=== PATIENT | male | born 1960 | race Caucasian/White ===

== ENCOUNTER 2017-03-09 14:06 | Inpatient (IN) | payer OTHER ==
[~2017-03-09 14:06] MED LIST: Iopamidol 370 76% 100 ML VIAL ONE
[2017-03-09 14:47] LABS: Clarity SL HAZY (Clear); Leukocyte Negative (Negative); Nitrite Negative (Negative)
[2017-03-09 14:48] LABS: Bilirubin Negative (Negative); Blood, Urine Negative (Negative); Glucose, Urine (Dipstick) 250 mg/dL (Negative); Protein, Urine (Dipstick) 30 mg/dL (Neg-Trace)
[2017-03-09 14:51] LABS: #Lymphocytes 2.4 thou/uL (1.20-3.40); #Neutrophils 7.1 thou/uL (1.40-6.50); %Basophils 1.3 % (0.0-1.0); %Eosinophils 3.3 % (0.0-10.0); %Lymphocytes 22.6 % (21.0-51.0); %Monocytes 6.2 % (0.0-10.0); %Neutrophils 66.6 % (42.0-75.0); Hemoglobin 14.9 g/dL (14.0-18.0); Mean Corpuscular HGB CONC 30.6 g/dL (32.0-36.0); Mean Corpuscular Hemoglobin 25.2 pg (27.0-31.0); Mean Corpuscular Volume 82.5 fL (80.0-94.0); Platelet Count 204 thou/uL (130-400); RBC Distribution Width 14.1 % (11.5-14.5); White Blood Cell (WBC) Count 10.6 thou/uL (4.8-10.8)
[2017-03-09] MEDS ORDERED: Sodium Chloride 0.9% 1,000 ML ONE (14:51)
[2017-03-09 14:52] LABS: #Basophils 0.1 thou/uL (0.0-0.2); #Eosinphils 0.4 thou/uL (0.0-0.7); #Monocytes 0.7 thou/uL (0.11-0.59)
[2017-03-09 14:54] LABS: RBC/HPF 0-3 HPF (0-3); Squamous Epithelial 0-3 HPF (0-3); WBC/HPF 0-3 HPF (0-3)
[2017-03-09 14:59] LABS: Carbon Dioxide 27 mmol/L (22-29); Chloride 99 mmol/L (98-107); Potassium 3.9 mmol/L (3.5-5.1); Sodium 138 mmol/L (136-145)
[2017-03-09 15:00] LABS: Anion Gap 16 mmol/L (10-20); BUN (Urea Nitrogen) 11 mg/dL (8.4-25.7); Bilirubin, Total 0.9 mg/dL (0.2-1.2); Calcium 9.9 mg/dL (7.8-10.44); Estimated GFR-MDRD 55; Globulin 4.5 g/dL (2.4-3.5); Glucose 173 mg/dL (70-105); Protein, Total 8.5 g/dL (6.0-8.3)
[2017-03-09 15:01] LABS: ALT (SGPT) 29 U/L (8-55); AST (SGOT) 23 U/L (5-34); Alkaline Phosphatase 80 U/L (40-150); Lipase 17 U/L (8-78)
[2017-03-09] MEDS ORDERED: Fentanyl 100 MCG/2 ML VIAL ONE (15:46)
[2017-03-09] MEDS ORDERED: Fentanyl 100 MCG/2 ML VIAL SLOW IVP PRN ×2 (16:10→18:49)
[2017-03-09] MEDS ORDERED: Dextrose 50% Abboject 50 ML SYRINGE IVP PRN (16:11)
[2017-03-09] MEDS ORDERED: Dextrose 5% in Water 1,000 ML IV PRN ×2 (16:11→21:34)
[2017-03-09] MEDS ORDERED: Insulin Regular 300 UNITS/3 ML VIAL SC PRN (16:11)
--- NOTE | 2017-03-09 16:14 | CT ---
CT ABDOMEN AND PELVIS WITH CONTRAST: HISTORY: History of diverticulitis. Abdominal pain. COMPARISON: CT abdomen and pelvis 10/02/15. TECHNIQUE: CT abdomen and pelvis performed after intravenous administration of contrast. FINDINGS: There is moderate circumferential wall thickening of the sigmoid colon. Along the anterior mesenter ic side of the sigmoid colon is an area of diverticulitis. No abscess is yet seen. This is in a similar location to the 2015 bout of diverticulitis. There is extensive diverticular disease throughout the sigmoid colon. The remainder of the colon is unremarkable. Lung bases are clear. No pericardial effusion. Diffuse hepatic steatosis. Prior cholecystectomy. The spleen is unremarkable as well as the pancre as. Aortoiliac system is without aneurysmal dilatation. No adenopathy. The kidneys demonstrate punctate calculi within both collecting systems. There is a large bone island in the right iliac wing. IMPRESSION: 1. Uncomplicated acute sigmoid diverticulitis. Followup colonoscopy may be helpful. 2. Small renal calculi bilaterally without evidence of recently passed stone. POS: OFF
[2017-03-09] MEDS ORDERED: Sodium Chloride 0.9% 1,000 ML IV SCH (16:15)
[2017-03-09 16:30] VITALS: BMI 32.8
[2017-03-09] MEDS ORDERED: Piperacillin/Tazobactam 3.375 GM in Sodium Chloride 0.9% 100 ML IVPB SCH (17:00)
[2017-03-09] MEDS ORDERED: Ipratropium Bromide 2.5 ml Neb NEB SCH (18:00)
[2017-03-09] MEDS ORDERED: Nitroglycerin 0.4 MG TAB (25 Tab Bottle) SL PRN (21:32)
[2017-03-09] MEDS ORDERED: PROVENTIL INHALER 6.7 G (200 INHALATIONS) INH PRN (21:32)
[2017-03-09] MEDS ORDERED: Dextrose 50% Abboject 50 ML SYRINGE SLOW IVP PRN (21:34)
[2017-03-10] MEDS: Piperacillin/Tazobactam 3.375 GM in Sodium Chloride 0.9% 100 ML IVPB SCH ×4 (01:09→17:01)
[2017-03-10] MEDS: HYDROcodone/Acetaminophen 10/325 mg Tablet PO SCH ×6 (01:10→20:41)
[2017-03-10] MEDS: Ipratropium Bromide 2.5 ml Neb NEB SCH ×4 (01:11→18:43)
[2017-03-10] MEDS: Sodium Chloride 0.9% 1,000 ML IV SCH ×3 (01:11→18:45)
[2017-03-10 05:16] LABS: #Basophils 0.1 thou/uL (0.0-0.2); #Eosinphils 0.3 thou/uL (0.0-0.7); #Lymphocytes 2.3 thou/uL (1.20-3.40); #Monocytes 0.5 thou/uL (0.11-0.59); #Neutrophils 5.3 thou/uL (1.40-6.50); %Basophils 1.1 % (0.0-1.0); %Eosinophils 3.5 % (0.0-10.0); %Lymphocytes 26.7 % (21.0-51.0); %Monocytes 6.2 % (0.0-10.0); %Neutrophils 62.5 % (42.0-75.0); Mean Corpuscular Hemoglobin 25.6 pg (27.0-31.0); Mean Corpuscular Volume 82.7 fl (80.0-94.0); Mean Platelet Volume 9.8 fL (7.4-10.4); Platelet Count 144 thou/uL (130-400); RBC Distribution Width 14.2 % (11.5-14.5); Red Blood Cell (RBC) Count 5.08 mill/uL (4.70-6.10); White Blood Cell (WBC) Count 8.5 thou/uL (4.8-10.8)
[2017-03-10 05:32] LABS: Anion Gap 15 mmol/L (10-20); BUN (Urea Nitrogen) 9 mg/dL (8.4-25.7); Calc. Creatinine Clearance 94 mL/min (70-130); Carbon Dioxide 26 mmol/L (22-29); Chloride 104 mmol/L (98-107); Estimated GFR-MDRD 65; Glucose 141 mg/dL (70-105); Potassium 4.3 mmol/L (3.5-5.1); Sodium 141 mmol/L (136-145)
[2017-03-10] MEDS: Mometasone/Formoterol 60 PUFF AER INH SCH ×2 (05:59→17:50)
[2017-03-10] MEDS: glipiZIDE 5 MG TAB PO SCH (07:44)
[2017-03-10] MEDS: Famotidine 20 MG TAB PO SCH ×2 (08:38→20:41)
[2017-03-10] MEDS: Gabapentin 300 MG CAP PO SCH ×3 (08:38→20:41)
[2017-03-10] MEDS: Docusate 100 MG CAP PO SCH ×2 (08:39→20:41)
[2017-03-10] MEDS: Loratadine 10 MG TAB PO SCH (08:39)
[2017-03-10] MEDS ORDERED: Sodium Chloride 0.9% 10 ML ONE (12:53)
[2017-03-10] MEDS: HumaLOG 300 UNITS/3 ML VIAL SC PRN (17:10)
[2017-03-10] MEDS: Atorvastatin Calcium 40 MG TAB PO SCH (20:40)
[2017-03-10] MEDS: Mirtazapine 30 MG TAB PO SCH (20:42)
--- NOTE | 2017-03-10 21:32 | PRG ---
DATE OF SERVICE: 03/10/2017 SUBJECTIVE: The patient feels much better with no abdominal pain, nausea or vomiting. Good appetit e. OBJECTIVE: VITAL SIGNS: Vital signs showing to have blood pressure 117/70, pulse 67, afebrile, O2 sats 97%. LUNGS: Clear. CARDIAC: Examination showed regular rhythm. ABDOMEN: Soft and nontender. LABORATORY DATA: White count 8500, hematocrit 42, hemoglobin 13. Accu-Cheks range from 144 to 201, on sliding scale. ASSESSMENT: Resolving diverticulitis. PLAN: Advance diet to diabetic diet. Discontinue IV Zosyn. Start Levaquin 500 p.o. daily Possible discharge tomorrow.
--- NOTE | 2017-03-10 23:07 | HP ---
DATE OF ADMISSION: 03/09/2017 CHIEF COMPLAINT: Abdominal pain, diverticulitis. HISTORY OF PRESENT ILLNESS: Patient is a 56-year-old white male with a history of coronary artery d isease, COPD, and hypertension, who presents with 6-day history of the abdominal pain with increased pain upon walking. No fever, chills, no nausea and vomiting, but significant constipation. He was sent to the emergency room where CT scan which showed acute diverticulitis. White count was normal , but he was significantly tender on his abdominal examination. It is felt therefore that he requir ed admission to hospital for IV antibiotics and monitoring of his elbow pain, because of his other c omorbidities of coronary artery disease, COPD. PAST MEDICAL HISTORY: Remarkable for coronary artery disease with recent admission to the hospital for chest pain with evaluation showing diffuse coronary artery disease with a 60% lesion in his LAD. He has done well on medical treatment, as he has become more compliant. He also has had good cont rol for the COPD. He has been compliant to his medications and is not admitted to the hospital this October. Hypertension is also well controlled, as with his diabetes, but he is a not insulin-depen dent. He is compliant to his medications. MEDICATIONS: Amlodipine 5 mg daily, aspirin 81 daily, atorvastatin 40 nightly, budesonide-formotero l inhaler 2 puffs twice daily, citalopram 40 mg nightly, gabapentin 600 three times daily, hydrocodo ne 10/300 every 4 hours as needed, Isordil 30 daily, isosorbide mononitrate 30 mg daily, Remeron 30 mg nightly, omeprazole 40 mg daily, Spiriva 18 mcg daily, Ventolin 2 puffs q.4, glipizide 5 mg daily , metformin 500 twice daily. ALLERGIES: He is allergic to SULFA. SOCIAL HISTORY: Non smoking, non drinking, lives with his , works at [employer]. FAMILY MEDICAL HISTORY: Positive for mother with coronary artery disease and diabetes. REVIEW OF SYSTEMS: HEENT: Denies headaches, dizziness, change in vision, hearing, hoarseness, or d ysphagia. Pulmonary: Denies cough, sputum production, pneumonia, asthma, tuberculosis. He had [facility] tiple admissions to the hospital for COPD exacerbation. Cardiovascular: He has history of current chest pain and nonsurgical coronary artery disease controlled medically with no recent change in ang gracy. No orthopnea, paroxysmal nocturnal dyspnea, or edema. Gastrointestinal: Denies nausea, vomit ing. Does have the above-mentioned abdominal pain, constipation. Genitourinary: Denies dysuria, h ematuria, nocturia. Musculoskeletal: Denies stiffness, swelling in joints or extremities. PHYSICAL EXAMINATION: GENERAL: Patient is a middle-aged white male who appears in mild distress from abdominal pain, orie nted x3 and cooperative. VITAL SIGNS: Blood pressure 149/82, O2 sat is 93%, respirations 18, pulse 80, afebrile. HEENT: Pupils are equal, round, and react to light and accommodation. Sclerae anicteric. Conjunct ivae pale. Oral mucous membranes. Well hydrated. NECK: Supple. There are no nodes or masses. JVP is not elevated. LUNGS: Clear. CARDIAC: Regular rhythm. No gallops or murmurs with S4. ABDOMEN: Soft, but diffusely tender with no rebound. There are decreased bowel sounds. SKIN/EXTREMITIES: Showed no edema, clubbing, cyanosis. NEUROLOGIC: Shows no focal findings. LABORATORY DATA: CT scan revealing acute sigmoid diverticulitis, small renal calculi bilaterally. Laboratory shows white count of 10,600, hematocrit 48, hemoglobin 14. Sodium is 138, potassium 3.9, chloride 99, bicarbonate 27, BUN 11, creatinine 1.34, glucose 173, calcium 9.9. AST 23, ALT 29, al bumin 4.0, globulin 4.5. Urinalysis shows trace ketones, 250 glucose, 30 mg protein. ASSESSMENT: Acute sigmoid diverticulitis in the patient with multiple comorbidities of hypertension , diabetes, or coronary artery disease. We will admit to the hospital on IV Zosyn with clear liquid s. Continue home medications, monitor overnight, and slowly advance diet.
[2017-03-11] MEDS: HYDROcodone/Acetaminophen 10/325 mg Tablet PO SCH ×6 (04:01→20:10)
[2017-03-11] MEDS: Ipratropium Bromide 2.5 ml Neb NEB SCH ×4 (04:02→20:13)
[2017-03-11] MEDS: Mometasone/Formoterol 60 PUFF AER INH SCH ×2 (06:05→18:40)
[2017-03-11] MEDS ORDERED: Magnesium Citrate 300 ML BOT PO SCH (07:15)
--- NOTE | 2017-03-11 08:30 | PRG ---
DATE OF SERVICE: 03/11/2017 SUBJECTIVE: The patient feels well with no further abdominal pain, good appetite. No nausea or vom iting. He still has not had a bowel movement for over a week. OBJECTIVE: Blood pressure 105/58, temperature 98, pulse 65, respirations 18, O2 sats 96% on room ai r. White count was normal yesterday at 8500. Abdomen is soft and nontender. Lungs are clear. ASSESSMENT: 1. Resolving sigmoid diverticulitis. 2. Stable hypertension. 3. Stable diabetes with Accu-Cheks running from 108-185. 4. Stable coronary disease with no angina. 5. Persistent constipation, severe over 1 week. PLAN: Bottle of mag citrate 300 mL now. If he has normal bowel movement will discharge home today on oral Levaquin.
[2017-03-11] MEDS: Gabapentin 300 MG CAP PO SCH ×3 (08:47→20:11)
[2017-03-11] MEDS: Loratadine 10 MG TAB PO SCH (08:47)
[2017-03-11] MEDS: glipiZIDE 5 MG TAB PO SCH (08:47)
[2017-03-11] MEDS: Docusate 100 MG CAP PO SCH ×2 (08:48→20:12)
[2017-03-11] MEDS: Famotidine 20 MG TAB PO SCH ×2 (08:48→20:11)
[2017-03-11] MEDS: HumaLOG 300 UNITS/3 ML VIAL SC PRN (16:53)
[2017-03-11] MEDS ORDERED: GoLYTELY 4,000 ml Bottle PO SCH (18:45)
[2017-03-11] MEDS: Mirtazapine 30 MG TAB PO SCH (20:11)
[2017-03-11] MEDS: Atorvastatin Calcium 40 MG TAB PO SCH (20:12)
[2017-03-12] MEDS: HYDROcodone/Acetaminophen 10/325 mg Tablet PO SCH ×2 (01:05→05:43)
[2017-03-12] MEDS: Ipratropium Bromide 2.5 ml Neb NEB SCH ×2 (01:09→06:21)
[2017-03-12] MEDS ORDERED: HYDROcodone/Acetaminophen 10/325 mg Tablet PO PRN (05:39)
[2017-03-12] MEDS: Mometasone/Formoterol 60 PUFF AER INH SCH (06:21)
[2017-03-12] MEDS: HumaLOG 300 UNITS/3 ML VIAL SC PRN (06:24)
[2017-03-12] MEDS: glipiZIDE 5 MG TAB PO SCH (07:40)
[2017-03-12 07:43] VITALS: BP 122/67; TEMP 97.6
[2017-03-12] MEDS: Famotidine 20 MG TAB PO SCH (08:39)
[2017-03-12] MEDS: Loratadine 10 MG TAB PO SCH (08:39)
[2017-03-12] MEDS: Docusate 100 MG CAP PO SCH (08:40)
[2017-03-12] MEDS: Gabapentin 300 MG CAP PO SCH (08:40)
--- NOTE | 2017-03-12 10:46 | RAD ---
ABDOMEN 1 VIEW: Date: 03/12/17 HISTORY: 56-year-old male with constipation and history of diverticulitis. COMPARISON: 03/09/17 CT. FINDINGS: There is some gas and minimal thecal material in the colon, but no significant solid fecal material within a dilated rectum that would suggest significant constipation. No free intraperitoneal air is seen on this supine study. There is some minimal gas and some borderline size small bowel loops in t he right side of the abdomen, possibly mild ileus secondary to documented acute diverticulitis on th e prior CT of 03/09/17. IMPRESSION: Unremarkable KUB. No bowel obstruction. No evidence for free intraperitoneal air. POS: CET
--- NOTE | 2017-03-12 13:54 | DIS ---
DATE OF ADMISSION: 03/09/2017 DATE OF DISCHARGE: 03/10/2017 FINAL DIAGNOSES: 1. Acute sigmoid diverticulitis. 2. Coronary disease with no evidence of angina. 3. Type 2 diabetes with fair control. 4. Chronic obstructive pulmonary disease, well compensated. 5. Depression, anxiety. HOSPITAL COURSE: The patient is a 56-year-old white male with a history of coronary artery disease, COPD, diabetes, but no previous history of diverticulitis, presented with severe left lower quadran t pain for several days. He was seen in my office and in the emergency room and found to have a nor mal white count with significant tenderness in the abdomen. Subsequent CT did show significant sigm oid diverticulitis. Because of his pain and his significant underlying comorbidities he was admitte d to the hospital and started on IV Zosyn and did well with decreasing pain, but still required pain medications of hydrocodone to control his pain. His abdominal exam; however normalized with no ten derness to palpation. His diet was initially a clear liquid, but then was advanced to diabetic diet . He did well on this with no problems, but did have persistent constipation as he states he has no t had a bowel movement for 1 week. He was therefore given mag citrate and then GoLYTELY prep with f air bowel movement. Repeat abdominal x-ray did show no evidence of obstruction or fecal impaction a nd improving stool in the colon and therefore, he was felt to be stable to be discharged home. He h ad been switched to oral Levaquin after the first day in the hospital and was continued on this on d ischarge of Levaquin 500 mg daily, plus his home medications of amlodipine 5 daily, aspirin 81 daily , atorvastatin 40 nightly, budesonide formoterol 2 puffs twice daily, citalopram 40 mg daily, docusa te 100 mg twice daily was added, famotidine 20 mg twice daily was added, gabapentin 600 three times daily was continued, isosorbide mononitrate 30 mg daily was continued, Levaquin 500 mg daily for 1 w [place] was added, Remeron 30 mg daily was continued, nitroglycerin as needed, Spiriva 18 mcg puff twic e daily was continued, glipizide 5 mg daily was continued, metformin 500 twice daily was continued. His laboratories on discharge showed his Accu-Cheks to range from 108 to 236. His white count was 8 500, hematocrit 42, hemoglobin 13, sodium 141, potassium 4.3, chloride 104, bicarb 26, BUN 9, creati nine 1.16, glucose 141. He will follow up with his primary care physician on discharge.
== END 2017-03-12 09:58 | disposition home or self-care (01) | DRG 392 ==
LOC: NAV ERS 14:06 → NAV ACUTE 14:11 → NAV ERS 16:00 → UNDOADMIN 16:13 → NAV ACUTE 16:13
PROVIDERS: ADMIT Internal Medicine; ATTEND Internal Medicine
DX: K57.32 Diverticulitis of large intestine without perforation or abscess without bleeding (principal); I10 Essential (primary) hypertension; I25.10 Atherosclerotic heart disease of native coronary artery without angina pectoris; K59.09 Other constipation; J44.9 Chronic obstructive pulmonary disease, unspecified; Z79.84 Long term (current) use of oral hypoglycemic drugs; E11.9 Type 2 diabetes mellitus without complications; F32.9 Major depressive disorder, single episode, unspecified; F41.9 Anxiety disorder, unspecified; Z95.0 Presence of cardiac pacemaker; K21.9 Gastro-esophageal reflux disease without esophagitis; E78.00 Pure hypercholesterolemia, unspecified; E86.0 Dehydration
CPT/HCPCS: 36415; 36416; 74000; 74177; 80048; 80053; 81003; 81015; 83690; 85025; 94640; 94664; 96361; 96374; A4216; J2543; J3010; J7050; J7644

== ENCOUNTER 2017-05-11 17:28 | Inpatient (IN) | payer OTHER ==
[2017-05-11 18:13] VITALS: BMI 32.8
[2017-05-11] MEDS ORDERED: Ondansetron HCl/PF 4 MG/2 ML Vial IVP PRN (18:50)
[2017-05-11] MEDS ORDERED: PROVENTIL INHALER 6.7 G (200 INHALATIONS) INH PRN (18:53)
[2017-05-11] MEDS ORDERED: Nitroglycerin 0.4 MG TAB (25 Tab Bottle) SL PRN (19:00)
[2017-05-11 20:46] LABS: ALT (SGPT) 34 U/L (8-55); AST (SGOT) 44 U/L (5-34); Albumin 4.6 g/dL (3.5-5.0); Alkaline Phosphatase 94 U/L (40-150); Anion Gap 17 mmol/L (10-20); BUN (Urea Nitrogen) 10 mg/dL (8.4-25.7); Bilirubin, Total 0.8 mg/dL (0.2-1.2); Calc. Creatinine Clearance 98 mL/min (70-130); Calcium 9.8 mg/dL (7.8-10.44); Carbon Dioxide 25 mmol/L (22-29); Chloride 99 mmol/L (98-107); Estimated GFR-MDRD 68; Globulin 3.7 g/dL (2.4-3.5); Glucose 160 mg/dL (70-105); Potassium 3.5 mmol/L (3.5-5.1); Protein, Total 8.3 g/dL (6.0-8.3); Sodium 137 mmol/L (136-145)
[2017-05-11] MEDS ORDERED: TIOTROPIUM INH SCH (21:00)
[2017-05-11] MEDS: Sodium Chloride 0.9% 1,000 ML IV SCH (21:14)
[2017-05-11] MEDS: Pantoprazole 40 MG VIAL IVP SCH (21:14)
[2017-05-12] MEDS: Ipratropium Bromide 2.5 ml Neb NEB SCH ×4 (02:25→19:07)
[2017-05-12] MEDS: Sodium Chloride 0.9% 1,000 ML IV SCH ×5 (04:09→23:00)
[2017-05-12] MEDS: Mometasone/Formoterol 60 PUFF AER INH SCH ×2 (06:00→17:42)
[2017-05-12] MEDS ORDERED: Non-Formulary Item 1 EACH (Budesonide-Formoterol [Symbicort 160-4.5] 2 PUFF) INH SCH (06:30)
[2017-05-12 07:19] LABS: Bilirubin Negative (Negative); Blood, Urine Negative (Negative); Clarity Clear (Clear); Glucose, Urine (Dipstick) Negative (Negative); Leukocyte Negative (Negative); Nitrite Negative (Negative); Protein, Urine (Dipstick) Negative (Neg-Trace); Urobilinogen 0.2 mg/dL (0.2-1.0)
[2017-05-12 07:25] LABS: Bacteria/HPF None Seen HPF (None Seen); RBC/HPF None Seen HPF (0-3); Squamous Epithelial 0-3 HPF (0-3); WBC/HPF None Seen HPF (0-3)
[2017-05-12 07:27] LABS: #Basophils 0.1 thou/uL (0.0-0.2); #Eosinphils 0.7 thou/uL (0.0-0.7); #Lymphocytes 2.4 thou/uL (1.20-3.40); #Monocytes 0.6 thou/uL (0.11-0.59); #Neutrophils 4.6 thou/uL (1.40-6.50); %Basophils 1.6 % (0.0-1.0); %Eosinophils 8.7 % (0.0-10.0); %Lymphocytes 28.2 % (21.0-51.0); %Monocytes 6.6 % (0.0-10.0); %Neutrophils 54.8 % (42.0-75.0); Hemoglobin 14.7 g/dL (14.0-18.0); Mean Corpuscular HGB CONC 30.8 g/dL (32.0-36.0); Mean Corpuscular Hemoglobin 25.2 pg (27.0-31.0); Mean Corpuscular Volume 81.8 fl (80.0-94.0); Platelet Count 220 thou/uL (130-400); RBC Distribution Width 13.4 % (11.5-14.5); Red Blood Cell (RBC) Count 5.83 mill/uL (4.70-6.10); White Blood Cell (WBC) Count 8.3 thou/uL (4.8-10.8)
[2017-05-12] MEDS ORDERED: Iopamidol 370 76% 100 ML VIAL ONE (09:00)
[2017-05-12] MEDS: Morphine Sulfate 2 MG/ML SYRINGE SLOW IVP PRN ×3 (09:19→17:42)
--- NOTE | 2017-05-12 09:46 | CT ---
CT ABDOMEN WITH IV CONTRAST CT PELVIS WITH IV CONTRAST: Date: 05-12-17 History: Diverticulitis. Patient has surgical history of cholecystectomy/appendectomy. Comparison: 03-09-17 FINDINGS: Multiple colonic diverticula are again seen, the greatest involving the descending and sigmoid colon . The bowel wall thickening and pericolonic inflammatory changes involving the proximal sigmoid colo n have almost completely resolved and there is only minimal residual inflammatory stranding seen. Th ere is no fluid collection seen to suggest an abscess. No free intraperitoneal gas is seen in the ab domen or pelvis. Again noted is fatty infiltration of the liver. Post cholecystectomy changes are again seen. There is partial visualization of cardiac pacemaking leads in the right atrium and right ventricle. Lung bases are clear. The spleen, pancreas, bilateral adrenal glands, kidneys, and urinary bladder demonstrate a normal CT appearance. Vascular calcification is seen in the abdominal aorta and iliac arteries. There has been no other interval change from the prior exam. IMPRESSION: 1. Improvement in diverticulitis involving the sigmoid colon. There is minimal pericolonic inflammat ory changes seen, but the bowel wall thickening has improved. There is no fluid collection seen to s uggest an abscess. No free intraperitoneal gas is seen. 2. Fatty infiltration of the liver. 3. Post cholecystectomy changes. 4. Nonobstructing bilateral renal calculi, better seen on the coronal images. POS: ADELIA
--- NOTE | 2017-05-12 11:24 | RAD ---
PA AND LATERAL CHEST: History: Diverticulitis FINDINGS: Comparison is made with exam of 07-06-16. The heart size is prominent but stable. Left sided pacemaker device remains in place. The lungs are well expanded without confluent areas of consolidation, pneumothorax, lisa pleural edema or pleural effusions. There are degenerative changes of the spine. IMPRESSION: No radiographic evidence of acute cardiopulmonary process. POS: H
[2017-05-12] MEDS ORDERED: Sodium Chloride For Inhalation 0.9% 3 ML NEB ONE (20:24)
[2017-05-12] MEDS: Sodium Chloride 0.9% 20 ML ONE ×2 (21:02→21:03)
[2017-05-12] MEDS: Pantoprazole 40 MG VIAL IVP SCH (21:03)
[2017-05-13] MEDS: Ipratropium Bromide 2.5 ml Neb NEB SCH ×4 (06:24→18:04)
[2017-05-13] MEDS: Mometasone/Formoterol 60 PUFF AER INH SCH ×2 (06:24→18:03)
[2017-05-13] MEDS: Sodium Chloride 0.9% 1,000 ML IV SCH (06:25)
[2017-05-13] MEDS: glipiZIDE 5 MG TAB PO SCH (07:26)
[2017-05-13] MEDS: Gabapentin 300 MG CAP PO SCH ×3 (08:18→20:27)
[2017-05-13] MEDS: Loratadine 10 MG TAB PO SCH (08:19)
[2017-05-13] MEDS ORDERED: Atorvastatin Calcium 40 MG TAB PO SCH (21:00)
[2017-05-13] MEDS ORDERED: Mirtazapine 30 MG TAB PO SCH (21:00)
[2017-05-14] MEDS: Ipratropium Bromide 2.5 ml Neb NEB SCH ×2 (01:52→06:09)
[2017-05-14] MEDS: Mometasone/Formoterol 60 PUFF AER INH SCH (06:07)
[2017-05-14] MEDS: glipiZIDE 5 MG TAB PO SCH (07:30)
[2017-05-14 07:54] VITALS: BP 134/76; TEMP 96.9
[2017-05-14] MEDS: Loratadine 10 MG TAB PO SCH (08:40)
[2017-05-14] MEDS: Gabapentin 300 MG CAP PO SCH (08:40)
== END 2017-05-14 12:30 | disposition home or self-care (01) | DRG 392 ==
LOC: NAV ACUTE 17:28
PROVIDERS: ADMIT Internal Medicine; ATTEND Internal Medicine
DX: K57.32 Diverticulitis of large intestine without perforation or abscess without bleeding (principal); I10 Essential (primary) hypertension; E11.9 Type 2 diabetes mellitus without complications; J44.9 Chronic obstructive pulmonary disease, unspecified; I25.10 Atherosclerotic heart disease of native coronary artery without angina pectoris; Z91.19 Patient's noncompliance with other medical treatment and regimen
CPT/HCPCS: 36415; 36416; 71020; 74177; 80053; 81001; 83605; 85025; 87040; A4216; C9113; J1956; J2270; J7050; J7644

== ENCOUNTER 2017-07-06 15:32 | Outpatient (CLI) | payer BC, OTHER ==
[2017-07-06 16:23] LABS: #Basophils 0.2 thou/uL (0.0-0.2); #Eosinphils 0.6 thou/uL (0.0-0.7); #Monocytes 0.5 thou/uL (0.11-0.59); #Neutrophils 5.5 thou/uL (1.40-6.50); %Basophils 2.4 % (0.0-1.0); %Eosinophils 6.6 % (0.0-10.0); %Lymphocytes 22.7 % (21.0-51.0); %Monocytes 5.8 % (0.0-10.0); %Neutrophils 62.6 % (42.0-75.0); Hemoglobin 15.1 g/dL (14.0-18.0); Mean Corpuscular HGB CONC 31.3 g/dL (32.0-36.0); Mean Corpuscular Hemoglobin 25.6 pg (27.0-31.0); Mean Corpuscular Volume 81.7 fl (80.0-94.0); Mean Platelet Volume 9.3 fL (7.4-10.4); Platelet Count 197 thou/uL (130-400); RBC Distribution Width 13.8 % (11.5-14.5); Red Blood Cell (RBC) Count 5.91 mill/uL (4.70-6.10); White Blood Cell (WBC) Count 8.8 thou/uL (4.8-10.8)
== END 2017-07-06 15:33 | disposition home or self-care (01) ==
LOC: NAV LAB 15:32
PROVIDERS: ATTEND Internal Medicine
DX: K57.32 Diverticulitis of large intestine without perforation or abscess without bleeding (principal)
CPT/HCPCS: 36415; 85025

== ENCOUNTER 2018-11-04 08:54 | Emergency (ER) | payer BC ==
[2018-11-04] MEDS ORDERED: Sodium Chloride 0.9% 1,000 ML ONE (09:37)
[2018-11-04] MEDS ORDERED: Morphine 4 MG/ML VIAL ONE (09:37)
[2018-11-04 09:57] LABS: Anion Gap 13 mmol/L (10-20); BUN (Urea Nitrogen) 9 mg/dL (8.4-25.7); Calc. Creatinine Clearance 0 mL/min (70-130); Calcium 9.6 mg/dL (7.8-10.44); Carbon Dioxide 27 mmol/L (22-29); Chloride 98 mmol/L (98-107); Estimated GFR-MDRD 52; Glucose 320 mg/dL (70-105); Potassium 3.9 mmol/L (3.5-5.1); Sodium 134 mmol/L (136-145)
[2018-11-04] MEDS ORDERED: Ondansetron PF 4 MG/2 ML Vial ONE (10:01)
[2018-11-04] MEDS ORDERED: Promethazine HCl 25 MG/ML VIAL ONE (10:02)
[2018-11-04 10:16] LABS: Bilirubin Negative (Negative); Blood, Urine Trace (Negative); Clarity Clear (Clear); Glucose, Urine (Dipstick) >=1000 mg/dL (Negative); Leukocyte Negative (Negative); Nitrite Negative (Negative); Protein, Urine (Dipstick) Negative (Neg-Trace); Specific Gravity, Urine 1.015 (1.005-1.030); Urobilinogen 0.2 mg/dL (0.2-1.0)
[2018-11-04 10:23] LABS: Bacteria/HPF None Seen HPF (None Seen); RBC/HPF 0-3 HPF (0-3); Squamous Epithelial None Seen HPF (0-3); WBC/HPF None Seen HPF (0-3)
[2018-11-04] MEDS ORDERED: cefTRIAXone\\ROCEPHIN 1 GM VIAL ONE (10:52)
[2018-11-04] MEDS ORDERED: Sodium Chloride 0.9% 100 ML ONE (10:53)
--- NOTE | 2018-11-04 11:00 | CT ---
CT ABDOMEN AND PELVIS WITH IV CONTRAST: Date: 11/04/18 PROVIDED CLINICAL HISTORY: Left lower quadrant pain. FINDINGS: Comparison with 05/12/17. The visualized lung bases are free of significant opacity. Fatty infiltration of the liver is noted. There is stranding and noncircumscribed fluid density about the left kidney and left ureter. There is a 2.0 mm left UVJ calculus. There is mild left hydronephrosis. There is asymmetric retention of cont rast material within the left kidney. The right kidney, adrenal glands, pancreas, and spleen appear u nremarkable. Changes of prior cholecystectomy are seen. Postoperative changes are noted in the region of the rectosigmoid junction. Descending and sigmoid co lonic diverticula are seen without evidence for surrounding fat stranding. There is no evidence for b owel obstruction. No free intraperitoneal fluid or free intraperitoneal air. Vascular calcifications are noted. The osseous structures demonstrate no concerning lytic or blastic lesions. IMPRESSION: 1. 2.0 mm left UVJ calculus with associated collecting system rupture on the left. 2. Chronic findings as above. POS: ADELIA
== END 2018-11-04 11:45 | disposition short-term general hospital (02) ==
LOC: NAV ERS 08:54
DX: N28.89 Other specified disorders of kidney and ureter (principal); N13.2 Hydronephrosis with renal and ureteral calculous obstruction; I25.10 Atherosclerotic heart disease of native coronary artery without angina pectoris; E11.9 Type 2 diabetes mellitus without complications; K21.9 Gastro-esophageal reflux disease without esophagitis; E78.5 Hyperlipidemia, unspecified; I10 Essential (primary) hypertension; J44.9 Chronic obstructive pulmonary disease, unspecified; F32.9 Major depressive disorder, single episode, unspecified; Z79.82 Long term (current) use of aspirin; Z79.84 Long term (current) use of oral hypoglycemic drugs; Z79.899 Other long term (current) drug therapy
CPT/HCPCS: 36415; 74177; 80048; 81003; 81015; 96361; 96374; 96375; J0696; J1170; J2270; J2405; J2550; J7050

== ENCOUNTER 2019-01-05 18:44 | Emergency (ER) | payer BC ==
[2019-01-05 19:17] LABS: Bilirubin Small (Negative); Blood, Urine Negative (Negative); Glucose, Urine (Dipstick) >=1000 mg/dL (Negative); Leukocyte Negative (Negative); Nitrite Negative (Negative); Protein, Urine (Dipstick) 100 mg/dL (Neg-Trace); Urobilinogen 0.2 mg/dL (0.2-1.0); pH, Urine 5.5 (5.0-9.0)
[2019-01-05] MEDS ORDERED: Ondansetron PF 4 MG/2 ML Vial ONE (19:17)
[2019-01-05 19:19] LABS: Clarity SL HAZY (Clear)
[2019-01-05] MEDS ORDERED: Sodium Chloride 0.9% 1,000 ML ONE (19:43)
[2019-01-05 19:45] LABS: Bacteria/HPF Rare-Few HPF (None Seen); RBC/HPF 0-3 HPF (0-3); Specific Gravity, Urine 1.048 (1.002-1.036); Squamous Epithelial 0-3 HPF (0-3)
[2019-01-05 19:50] LABS: ALT (SGPT) 25 U/L (8-55); AST (SGOT) 24 U/L (5-34); Albumin 4.2 g/dL (3.5-5.0); Alkaline Phosphatase 83 U/L (40-150); Anion Gap 14 mmol/L (10-20); BUN (Urea Nitrogen) 9 mg/dL (8.4-25.7); Bilirubin, Total 0.6 mg/dL (0.2-1.2); Calc. Creatinine Clearance 0 mL/min (70-130); Calcium 9.8 mg/dL (7.8-10.44); Carbon Dioxide 26 mmol/L (22-29); Chloride 98 mmol/L (98-107); Estimated GFR-MDRD 60; Globulin 3.2 g/dL (2.4-3.5); Glucose 279 mg/dL (70-105); Potassium 4.1 mmol/L (3.5-5.1); Protein, Total 7.4 g/dL (6.0-8.3); Sodium 134 mmol/L (136-145)
[2019-01-05 19:55] LABS: #Basophils 0.1 thou/uL (0.0-0.2); #Eosinphils 0.3 thou/uL (0.0-0.7); #Lymphocytes 2.1 thou/uL (1.20-3.40); #Monocytes 0.4 thou/uL (0.11-0.59); #Neutrophils 5.3 thou/uL (1.40-6.50); %Basophils 1.5 % (0.0-1.0); %Eosinophils 3.1 % (0.0-10.0); %Lymphocytes 25.5 % (21.0-51.0); %Neutrophils 64.9 % (42.0-75.0); Hemoglobin 13.2 g/dL (14.0-18.0); Mean Corpuscular HGB CONC 30.8 g/dL (32.0-36.0); Mean Corpuscular Hemoglobin 23.5 pg (27.0-31.0); Mean Corpuscular Volume 76.3 fL (78.0-98.0); Mean Platelet Volume 10.3 fL (7.4-10.4); Platelet Count 190 thou/uL (130-400); RBC Distribution Width 14.2 % (11.5-14.5); Red Blood Cell (RBC) Count 5.63 mill/uL (4.70-6.10); White Blood Cell (WBC) Count 8.2 thou/uL (4.8-10.8)
--- NOTE | 2019-01-05 20:12 | CT ---
CT ABDOMEN AND PELVIS WITH IV CONTRAST 01/05/19 HISTORY: Left upper quadrant abdominal pain and palpable abnormality/mass. COMPARISON: 11/04/18. FINDINGS: There is partial visualization of the cardiac pacemaking lead within the right ventricle. There is atelectasis present at the left lung base. Lung bases are otherwise clear. Liver again demonstrates decreased attenuation likely attributable to diffuse fatty infiltration. Pos t cholecystectomy changes are noted. There is a stable nonobstructing superior pole right renal calculus measuring approximately 3 mm. No ureteral calculi are seen bilaterally, and there is no evidence of hydronephrosis. The kidneys other triplett have a normal CT appearance bilaterally. The spleen, pancreas, bilateral adrenal glands, and decompressed urinary bladder demonstrate a normal CT appearance. There is colonic diverticulosis. Postsurgical changes are seen at the rectosigmoid junction with anas tomotic suture seen in this region. The appendix is not visualized , but there are no secondary signs to suggest appendicitis. Vascular calcifications are seen in the abdominal aorta and involving the iliac arteries. There is no free fluid, fluid collection, or lymphadenopathy seen in the abdomen or pelvis. CT abdomen and pelvis is stable compared to the prior exam. IMPRESSION: 1. No acute findings seen in the abdomen or pelvis 2. Fatty infiltration of the liver. 3. Nonobstructing right renal calculus. 4. Post cholecystectomy changes. 5. Colonic diverticulosis with postsurgical change in the region of the rectosigmoid junction. 6. Previously seen distal left ureteral calculus is no longer seen, and there has been resolutio n of left hydronephrosis. POS: [facility]
[2019-01-05] MEDS ORDERED: Morphine 4 MG/ML VIAL ONE (20:22)
== END 2019-01-05 20:32 | disposition home or self-care (01) ==
LOC: NAV ERS 18:44
DX: R10.12 Left upper quadrant pain (principal); E11.9 Type 2 diabetes mellitus without complications; E78.00 Pure hypercholesterolemia, unspecified; I10 Essential (primary) hypertension; J44.9 Chronic obstructive pulmonary disease, unspecified; Z79.899 Other long term (current) drug therapy
CPT/HCPCS: 74177; 80053; 81003; 81015; 85025; 87086; 96374; 96375; 96376; J2270; J2405; J7050; Q9967

== ENCOUNTER 2019-01-10 17:47 | Inpatient (IN) | payer BC ==
[2019-01-10] MEDS ORDERED: Loperamide HCl 2 MG CAP PO PRN (18:06)
[2019-01-10] MEDS ORDERED: Dextrose 5% in Water 1,000 ML IV PRN (18:06)
[2019-01-10] MEDS ORDERED: Nitroglycerin 0.4 MG TAB (25 Tab Bottle) SL PRN (18:06)
[2019-01-10] MEDS ORDERED: Calcium Carbonate 500 MG ChewTAB PO PRN (18:06)
[2019-01-10] MEDS ORDERED: Ondansetron PF 4 MG/2 ML Vial IVP PRN (18:06)
[2019-01-10] MEDS ORDERED: Dextrose 50% Abboject 50 ML SYRINGE SLOW IVP PRN (18:06)
[2019-01-10 18:09] VITALS: BMI 29.9
[2019-01-10] MEDS ORDERED: Nicotine 21 MG PATCH TD SCH ×2 (18:15→20:00)
--- NOTE | 2019-01-10 18:57 | RAD ---
PA AND LATERAL OF THE CHEST: 01/10/19 INDICATION: COPD exacerbation. COMPARISON: Prior exam dated 05/12/17. FINDINGS: No definite consolidation is evident. There is increased air space opacity within the retrocardiac le ft lower lobe. Right lung is clear. Dual lead pacemaker and mild cardiomegaly is stable. Osseous stru ctures are similar. IMPRESSION: Increased air space opacity within the retrocardiac left lower lobe may reflect component of atelecta sis or pneumonia. Recommend correlation. POS: DAELIA
[2019-01-10 20:10] LABS: #Basophils 0.2 thou/uL (0.0-0.2); #Eosinphils 0.1 thou/uL (0.0-0.7); #Lymphocytes 2.1 thou/uL (1.20-3.40); #Monocytes 0.9 thou/uL (0.11-0.59); #Neutrophils 5.8 thou/uL (1.40-6.50); %Basophils 2.4 % (0.0-1.0); %Eosinophils 1.3 % (0.0-10.0); %Lymphocytes 22.9 % (21.0-51.0); %Monocytes 9.4 % (0.0-10.0); Hemoglobin 13.2 g/dL (14.0-18.0); Mean Corpuscular HGB CONC 31.1 g/dL (32.0-36.0); Mean Corpuscular Hemoglobin 23.6 pg (27.0-31.0); Mean Platelet Volume 10.1 fL (7.4-10.4); Platelet Count 232 thou/uL (130-400); RBC Distribution Width 14.4 % (11.5-14.5); Red Blood Cell (RBC) Count 5.57 mill/uL (4.70-6.10)
[2019-01-10 20:14] LABS: ALT (SGPT) 33 U/L (8-55); AST (SGOT) 32 U/L (5-34); Albumin 4.2 g/dL (3.5-5.0); Alkaline Phosphatase 94 U/L (40-150); Anion Gap 17 mmol/L (10-20); BUN (Urea Nitrogen) 14 mg/dL (8.4-25.7); Bilirubin, Total 0.6 mg/dL (0.2-1.2); Calc. Creatinine Clearance 86 mL/min (70-130); Carbon Dioxide 22 mmol/L (22-29); Chloride 97 mmol/L (98-107); Estimated GFR-MDRD 66; Globulin 3.8 g/dL (2.4-3.5); Glucose 281 mg/dL (70-105); Potassium 3.7 mmol/L (3.5-5.1); Sodium 132 mmol/L (136-145)
[2019-01-10] MEDS: Gabapentin 300 MG CAP PO SCH (21:39)
[2019-01-10] MEDS: Mirtazapine 30 MG TAB PO SCH (21:39)
[2019-01-10] MEDS: Atorvastatin Calcium 40 MG TAB PO SCH (21:39)
[2019-01-10] MEDS: Sucralfate 1 GM TAB PO SCH (21:39)
[2019-01-10] MEDS: Famotidine 20 MG TAB PO SCH (21:39)
[2019-01-10] MEDS: HYDROcodone/Acetaminophen 5/325 mg Tablet PO PRN (21:40)
[2019-01-10] MEDS: HumaLOG 300 UNITS/3 ML VIAL SC PRN (21:50)
[2019-01-10] MEDS ORDERED: Amlodipine 10 MG TAB PO SCH (22:00)
[2019-01-10 22:17] LABS: Bilirubin Negative (Negative); Blood, Urine Small (Negative); Clarity Clear (Clear); Glucose, Urine (Dipstick) >=1000 mg/dL (Negative); Leukocyte Negative (Negative); Nitrite Negative (Negative); Protein, Urine (Dipstick) 30 mg/dL (Neg-Trace); Specific Gravity, Urine 1.015 (1.005-1.030); Urobilinogen 0.2 mg/dL (0.2-1.0)
[2019-01-10 22:18] LABS: Bacteria/HPF None Seen HPF (None Seen); Squamous Epithelial 0-3 HPF (0-3); WBC/HPF None Seen HPF (0-3)
[2019-01-10] MEDS ORDERED: Sodium Chloride 0.9% 10 ML ONE (23:53)
[2019-01-10] MEDS: methylPREDNISolone Sod Succ 40 MG VIAL IVP SCH (23:58)
[2019-01-10] MEDS: Guaifenesin DM 100-10/5 ML UDCUP PO PRN (23:58)
[2019-01-11] MEDS: methylPREDNISolone Sod Succ 40 MG VIAL IVP SCH ×3 (05:09→18:16)
[2019-01-11] MEDS: Guaifenesin DM 100-10/5 ML UDCUP PO PRN ×2 (05:09→21:05)
[2019-01-11] MEDS: HumaLOG 300 UNITS/3 ML VIAL SC PRN ×4 (05:10→21:11)
[2019-01-11] MEDS: HYDROcodone/Acetaminophen 5/325 mg Tablet PO PRN ×3 (05:18→21:05)
[2019-01-11] MEDS: Sucralfate 1 GM TAB PO SCH ×4 (08:14→21:02)
[2019-01-11] MEDS: glyBURIDE 5 MG TAB PO SCH (08:14)
[2019-01-11] MEDS: metFORMIN 500 MG TAB PO SCH ×2 (08:15→16:40)
[2019-01-11] MEDS: Citalopram 20 MG TAB PO SCH (08:15)
[2019-01-11] MEDS: Aspirin 81 mg Enteric Coated Tablet PO SCH (08:15)
[2019-01-11] MEDS: Gabapentin 300 MG CAP PO SCH ×2 (08:15→21:02)
[2019-01-11] MEDS: Famotidine 20 MG TAB PO SCH ×2 (08:15→21:01)
[2019-01-11] MEDS ORDERED: Amlodipine 10 MG TAB PO SCH (09:00)
[2019-01-11] MEDS ORDERED: Dextrose 5% in Water 1,000 ML IV PRN (18:22)
[2019-01-11] MEDS ORDERED: Dextrose 50% Abboject 50 ML SYRINGE SLOW IVP PRN (18:22)
[2019-01-11] MEDS: Amlodipine 10 MG TAB PO SCH (21:01)
[2019-01-11] MEDS: Atorvastatin Calcium 40 MG TAB PO SCH (21:01)
[2019-01-11] MEDS: Mirtazapine 30 MG TAB PO SCH (21:02)
[2019-01-12] MEDS: methylPREDNISolone Sod Succ 40 MG VIAL IVP SCH ×4 (00:02→21:49)
[2019-01-12] MEDS: HumaLOG 300 UNITS/3 ML VIAL SC PRN ×3 (05:27→22:02)
[2019-01-12] MEDS: glyBURIDE 5 MG TAB PO SCH (08:08)
[2019-01-12] MEDS: Sucralfate 1 GM TAB PO SCH ×4 (08:08→21:48)
[2019-01-12] MEDS: HYDROcodone/Acetaminophen 5/325 mg Tablet PO PRN (08:09)
[2019-01-12] MEDS: Citalopram 20 MG TAB PO SCH (08:09)
[2019-01-12] MEDS: metFORMIN 500 MG TAB PO SCH ×2 (08:09→17:04)
[2019-01-12] MEDS: Famotidine 20 MG TAB PO SCH ×2 (08:09→21:48)
[2019-01-12] MEDS: Gabapentin 300 MG CAP PO SCH ×2 (08:09→21:49)
[2019-01-12] MEDS: Aspirin 81 mg Enteric Coated Tablet PO SCH (08:09)
--- NOTE | 2019-01-12 18:26 | PRG ---
DATE OF SERVICE: 01/12/2019 SUBJECTIVE: The patient is sitting on the bed, eating supper. He states he feels well, but is not sleeping well because of medications throughout the night. Still having cough, but no sputum production. OBJECTIVE: LUNGS: Clear with decreased breath sounds. No wheezes or rhonchi. CARDIAC: Regular rhythm. VITAL SIGNS: Temperature 97.4, pulse 96, respirations 20, O2 saturations 92% on 2L, and blood pressure 130/78. LABORATORY DATA: Accu-Chek still elevated, greater than 300 on IV Solu-Medrol 40 mg every 6. ASSESSMENT: 1. Resolving chronic obstructive pulmonary disease exacerbation, retrocardiac infiltrate. 2. Uncontrolled diabetes. PLAN: 1. Decrease Solu-Medrol to q.8 and probably switch to oral medications tomorrow. 2. Attempt to wean off oxygen tomorrow. 3. Change to oral Levaquin tomorrow. Job ID: [id number]
--- NOTE | 2019-01-12 18:41 | PRG ---
DATE OF SERVICE: 01/11/2019 SUBJECTIVE: The patient feels better, but still with cough, some wheezing and weakness. No fever or chills. No sputum production. OBJECTIVE: VITAL SIGNS: Show temperature is 97.9, pulse 101, respirations 20, O2 saturations 93% on room air, and blood pressure 137/72. LABORATORY DATA: Accu-Cheks have been elevated greater than 300. Sodium yesterday was 132, potassium 3.7, chloride 97, bicarb 22, BUN 14, creatinine 1.14. White count 9000, hematocrit 42, hemoglobin 13. Chest x-ray shows retrocardiac infiltrate. ASSESSMENT: 1. Pneumonia and then exacerbation of chronic obstructive pulmonary disease with bronchospasms, on IV steroids, DuoNeb q.4 hours, and IV Levaquin. 2. Uncontrolled diabetes secondary to steroids. PLAN: Increase sliding scale to aggressive. Continue handheld nebulizers. Continue IV Solu-Medrol, possibly decrease dose tomorrow. Job ID: [id number]
[2019-01-12] MEDS: Amlodipine 10 MG TAB PO SCH (21:48)
[2019-01-12] MEDS: Mirtazapine 30 MG TAB PO SCH (21:48)
[2019-01-12] MEDS: Atorvastatin Calcium 40 MG TAB PO SCH (21:48)
[2019-01-13] MEDS: HumaLOG 300 UNITS/3 ML VIAL SC PRN ×3 (05:50→21:38)
[2019-01-13] MEDS: methylPREDNISolone Sod Succ 40 MG VIAL IVP SCH (05:50)
[2019-01-13] MEDS: glyBURIDE 5 MG TAB PO SCH (08:27)
[2019-01-13] MEDS: Aspirin 81 mg Enteric Coated Tablet PO SCH (09:26)
[2019-01-13] MEDS: Gabapentin 300 MG CAP PO SCH ×2 (09:26→21:35)
[2019-01-13] MEDS: metFORMIN 500 MG TAB PO SCH ×2 (09:26→17:19)
[2019-01-13] MEDS: Famotidine 20 MG TAB PO SCH ×2 (09:27→21:34)
[2019-01-13] MEDS: Sucralfate 1 GM TAB PO SCH ×4 (09:27→21:35)
[2019-01-13] MEDS: Citalopram 20 MG TAB PO SCH (09:27)
[2019-01-13] MEDS: Atorvastatin Calcium 40 MG TAB PO SCH (21:34)
[2019-01-13] MEDS: Mirtazapine 30 MG TAB PO SCH (21:34)
[2019-01-13] MEDS: Amlodipine 10 MG TAB PO SCH (21:35)
[2019-01-14] MEDS: HumaLOG 300 UNITS/3 ML VIAL SC PRN ×4 (05:54→19:45)
[2019-01-14] MEDS: Gabapentin 300 MG CAP PO SCH ×2 (09:15→19:44)
[2019-01-14] MEDS: metFORMIN 500 MG TAB PO SCH ×2 (09:16→17:32)
[2019-01-14] MEDS: Aspirin 81 mg Enteric Coated Tablet PO SCH (09:16)
[2019-01-14] MEDS: glyBURIDE 5 MG TAB PO SCH (09:16)
[2019-01-14] MEDS: Sucralfate 1 GM TAB PO SCH ×4 (09:16→19:45)
[2019-01-14] MEDS: Famotidine 20 MG TAB PO SCH ×2 (09:16→19:44)
[2019-01-14] MEDS: Citalopram 20 MG TAB PO SCH (09:16)
[2019-01-14] MEDS: Amlodipine 10 MG TAB PO SCH (19:44)
[2019-01-14] MEDS: Atorvastatin Calcium 40 MG TAB PO SCH (19:44)
[2019-01-14] MEDS: Mirtazapine 30 MG TAB PO SCH (19:45)
[2019-01-14 19:50] VITALS: BP 119/73; TEMP 97.8
[2019-01-15] MEDS ORDERED: glyBURIDE 5 MG TAB PO SCH (08:00)
== END 2019-01-14 22:00 | disposition home or self-care (01) | DRG 190 ==
LOC: NAV ACUTE 17:47
PROVIDERS: ADMIT Internal Medicine; ATTEND Internal Medicine
DX: J44.1 Chronic obstructive pulmonary disease with (acute) exacerbation (principal); J18.9 Pneumonia, unspecified organism; N20.1 Calculus of ureter; J44.0 Chronic obstructive pulmonary disease with (acute) lower respiratory infection; E09.9 Drug or chemical induced diabetes mellitus without complications; T38.0X5A Adverse effect of glucocorticoids and synthetic analogues, initial encounter; I10 Essential (primary) hypertension; G89.29 Other chronic pain; F32.9 Major depressive disorder, single episode, unspecified; J98.01 Acute bronchospasm; I25.10 Atherosclerotic heart disease of native coronary artery without angina pectoris; Z90.49 Acquired absence of other specified parts of digestive tract; Z90.89 Acquired absence of other organs; Z88.2 Allergy status to sulfonamides
CPT/HCPCS: 36416; 71046; 80053; 81001; 85025; J2920; J7620

== ENCOUNTER 2019-05-09 15:45 | Emergency (ER) | payer BC, OTHER ==
[2019-05-09 16:38] LABS: Bilirubin Small (Negative); Blood, Urine Negative (Negative); Clarity Clear (Clear); Glucose, Urine (Dipstick) 500 mg/dL (Negative); Leukocyte Negative (Negative); Nitrite Negative (Negative); Protein, Urine (Dipstick) 100 mg/dL (Neg-Trace); Urobilinogen 0.2 mg/dL (Less than 2)
[2019-05-09 16:40] LABS: Bacteria/HPF Rare-Few HPF (None Seen); RBC/HPF 0-3 HPF (0-3); Squamous Epithelial 0-3 HPF (0-3)
== END 2019-05-09 16:24 | disposition home or self-care (01) ==
LOC: NAV ERS 15:45
DX: B02.9 Zoster without complications (principal); E11.9 Type 2 diabetes mellitus without complications; K21.9 Gastro-esophageal reflux disease without esophagitis; E78.00 Pure hypercholesterolemia, unspecified; I10 Essential (primary) hypertension; M19.90 Unspecified osteoarthritis, unspecified site; J44.9 Chronic obstructive pulmonary disease, unspecified; F32.9 Major depressive disorder, single episode, unspecified; Z79.899 Other long term (current) drug therapy; Z79.82 Long term (current) use of aspirin
CPT/HCPCS: 81003; 81015; 99284

== ENCOUNTER 2019-06-18 14:28 | Emergency (ER) | payer BC, OTHER ==
[2019-06-18] MEDS ORDERED: Sodium Chloride 0.9% 1,000 ML ONE (14:42)
[2019-06-18 15:23] LABS: #Basophils 0.1 thou/uL (0.0-0.2); #Eosinphils 0.2 thou/uL (0.0-0.7); #Lymphocytes 2.7 thou/uL (1.20-3.40); #Monocytes 0.5 thou/uL (0.11-0.59); #Neutrophils 5.3 thou/uL (1.40-6.50); %Basophils 1.5 % (0.0-1.0); %Eosinophils 2.7 % (0.0-10.0); %Lymphocytes 30.3 % (21.0-51.0); %Monocytes 5.8 % (0.0-10.0); %Neutrophils 59.6 % (42.0-75.0); Mean Corpuscular HGB CONC 30.7 g/dL (32.0-36.0); Mean Corpuscular Hemoglobin 23.5 pg (27.0-31.0); Mean Corpuscular Volume 76.4 fL (78.0-98.0); Mean Platelet Volume 9.7 fL (7.4-10.4); Platelet Count 183 thou/uL (130-400); RBC Distribution Width 15.2 % (11.5-14.5); Red Blood Cell (RBC) Count 5.97 mill/uL (4.70-6.10); White Blood Cell (WBC) Count 8.9 thou/uL (4.8-10.8)
[2019-06-18 15:32] LABS: ALT (SGPT) 37 U/L (8-55); AST (SGOT) 29 U/L (5-34); Albumin 4.1 g/dL (3.5-5.0); Alkaline Phosphatase 104 U/L (40-150); Anion Gap 18 mmol/L (10-20); BUN (Urea Nitrogen) 11 mg/dL (8.4-25.7); Bilirubin, Total 0.6 mg/dL (0.2-1.2); Calc. Creatinine Clearance 0 mL/min (70-130); Calcium 9.1 mg/dL (7.8-10.44); Carbon Dioxide 23 mmol/L (22-29); Chloride 94 mmol/L (98-107); Estimated GFR-MDRD 52; Glucose 531 mg/dL (70-105); Potassium 3.1 mmol/L (3.5-5.1); Protein, Total 7.1 g/dL (6.0-8.3); Sodium 132 mmol/L (136-145)
[2019-06-18 15:35] LABS: Bilirubin Negative (Negative); Blood, Urine Negative (Negative); Clarity Clear (Clear); Glucose, Urine (Dipstick) >=1000 mg/dL (Negative); Leukocyte Negative (Negative); Nitrite Negative (Negative); Protein, Urine (Dipstick) Negative (Neg-Trace); Urobilinogen 0.2 mg/dL (Less than 2)
[2019-06-18 15:48] LABS: Lactic Acid 1.8 mmol/L (0.5-2.2)
[2019-06-18] MEDS ORDERED: Potassium Chloride 20 MEQ TAB ONE (16:36)
[2019-06-18 16:44] LABS: Hypochromia SLIGHT = 6-15 cells (100X) (0-5/hpf); MDiff Complete? YES; Microcytosis SLIGHT = 6-15 cells (100X) (0-5/hpf); Platelet Morphology Comment Appears Adequate
== END 2019-06-18 16:45 | disposition home or self-care (01) ==
LOC: NAV ERS 14:28
DX: E11.65 Type 2 diabetes mellitus with hyperglycemia (principal); E86.0 Dehydration; E87.6 Hypokalemia; R71.8 Other abnormality of red blood cells; I25.10 Atherosclerotic heart disease of native coronary artery without angina pectoris; K21.9 Gastro-esophageal reflux disease without esophagitis; E78.00 Pure hypercholesterolemia, unspecified; I10 Essential (primary) hypertension; M19.90 Unspecified osteoarthritis, unspecified site; J44.9 Chronic obstructive pulmonary disease, unspecified; F32.9 Major depressive disorder, single episode, unspecified; Z79.82 Long term (current) use of aspirin; Z79.899 Other long term (current) drug therapy; Z79.51 Long term (current) use of inhaled steroids
CPT/HCPCS: 36416; 80053; 81003; 82010; 83605; 85025; 93005; 96360; 96361; 36415-59; J7050

== ENCOUNTER 2019-07-27 12:16 | Emergency (ER) | payer BC, OTHER ==
[2019-07-27] MEDS ORDERED: Sodium Chloride 0.9% 500 ML ONE (12:46)
[2019-07-27] MEDS ORDERED: Aspirin Chewable 81 MG TAB ONE (12:46)
[2019-07-27 13:08] LABS: #Basophils 0.1 thou/uL (0.0-0.2); #Eosinphils 0.5 thou/uL (0.0-0.7); #Lymphocytes 1.8 thou/uL (1.20-3.40); #Monocytes 0.4 thou/uL (0.11-0.59); #Neutrophils 3.6 thou/uL (1.40-6.50); %Eosinophils 7.6 % (0.0-10.0); %Lymphocytes 28.2 % (21.0-51.0); %Monocytes 6.9 % (0.0-10.0); %Neutrophils 55.4 % (42.0-75.0); Hemoglobin 11.8 g/dL (14.0-18.0); Mean Corpuscular HGB CONC 30.8 g/dL (32.0-36.0); Mean Corpuscular Hemoglobin 23.7 pg (27.0-31.0); Mean Corpuscular Volume 77.1 fL (78.0-98.0); Platelet Count 172 thou/uL (130-400); RBC Distribution Width 15.7 % (11.5-14.5); Red Blood Cell (RBC) Count 4.97 mill/uL (4.70-6.10); White Blood Cell (WBC) Count 6.4 thou/uL (4.8-10.8)
[2019-07-27 13:09] LABS: Anisocytosis SLIGHT = 6-15 cells (100X) (0-5/hpf); MDiff Complete? YES; Microcytosis SLIGHT = 6-15 cells (100X) (0-5/hpf); Platelet Morphology Comment Appears Adequate
[2019-07-27 13:10] LABS: ALT (SGPT) 27 U/L (8-55); AST (SGOT) 33 U/L (5-34); Albumin 3.8 g/dL (3.5-5.0); Alkaline Phosphatase 76 U/L (40-110); Anion Gap 13 mmol/L (10-20); BUN (Urea Nitrogen) 11 mg/dL (8.4-25.7); Bilirubin, Total 0.5 mg/dL (0.2-1.2); Calc. Creatinine Clearance 0 mL/min (70-130); Calcium 8.8 mg/dL (7.8-10.44); Carbon Dioxide 23 mmol/L (22-29); Chloride 107 mmol/L (98-107); Estimated GFR-MDRD 70; Globulin 2.4 g/dL (2.4-3.5); Glucose 185 mg/dL (70-105); Potassium 3.7 mmol/L (3.5-5.1); Protein, Total 6.2 g/dL (6.0-8.3); Sodium 139 mmol/L (136-145)
[2019-07-27] MEDS ORDERED: Morphine 4 MG/ML VIAL ONE (13:17)
[2019-07-27] MEDS ORDERED: Ondansetron PF 4 MG/2 ML Vial ONE (13:17)
--- NOTE | 2019-07-27 14:20 | CT ---
CTA CHEST WITH CONTRAST: Date: 07/27/19 Tomograms obtained with multiplanar reconstruction and 3D postprocessing following angio protocol. INDICATION: Shortness of breath. FINDINGS: Pulmonary arteries show adequate opacification. No evidence of pulmonary embolus identified. Lung inman are aerated and clear. No infiltrate or effusion. Thoracic aorta is opacified. No evidenc e of dissection or aneurysm. Mediastinum unremarkable. IMPRESSION: 1. No evidence of pulmonary embolus. 2. No acute lung process. POS: [facility]
== END 2019-07-27 14:13 | disposition short-term general hospital (02) ==
LOC: NAV ERS 12:16
DX: R06.00 Dyspnea, unspecified (principal); M79.89 Other specified soft tissue disorders; R79.1 Abnormal coagulation profile; E11.9 Type 2 diabetes mellitus without complications; I25.10 Atherosclerotic heart disease of native coronary artery without angina pectoris; I11.0 Hypertensive heart disease with heart failure; I50.9 Heart failure, unspecified; K21.9 Gastro-esophageal reflux disease without esophagitis; E78.00 Pure hypercholesterolemia, unspecified; J44.9 Chronic obstructive pulmonary disease, unspecified; F32.9 Major depressive disorder, single episode, unspecified; Z79.82 Long term (current) use of aspirin; Z79.51 Long term (current) use of inhaled steroids; Z79.899 Other long term (current) drug therapy
CPT/HCPCS: 36415; 71275; 80053; 83880; 84484; 85025; 85379; 93005; 96361; 96374; 96375; J2270; J2405; J7050; Q9967

== ENCOUNTER 2019-07-30 17:42 | Emergency (ER) | payer BC, OTHER ==
[2019-07-30] MEDS ORDERED: Acetaminophen/Codeine 30-300mg Tablet ONE (18:27)
== END 2019-07-30 18:30 | disposition home or self-care (01) ==
LOC: NAV ERS 17:42
DX: R60.0 Localized edema (principal); E11.9 Type 2 diabetes mellitus without complications; I11.0 Hypertensive heart disease with heart failure; I50.9 Heart failure, unspecified; F41.9 Anxiety disorder, unspecified; I25.10 Atherosclerotic heart disease of native coronary artery without angina pectoris; K21.9 Gastro-esophageal reflux disease without esophagitis; F32.9 Major depressive disorder, single episode, unspecified; E78.00 Pure hypercholesterolemia, unspecified; M19.90 Unspecified osteoarthritis, unspecified site; J44.9 Chronic obstructive pulmonary disease, unspecified; Z79.82 Long term (current) use of aspirin; Z79.899 Other long term (current) drug therapy
CPT/HCPCS: 99283

== ENCOUNTER 2021-05-31 12:11 | Emergency (ER) | payer BC ==
[2021-05-31] MEDS ORDERED: methylPREDNISolone Sod Succ/PF 125 MG/2 ML VIAL ONE (13:12)
[2021-05-31] MEDS ORDERED: Acetaminophen/Codeine 30-300mg Tablet ONE (13:13)
[2021-05-31] MEDS ORDERED: guaiFENesin 100 MG/5 ML UDCUP ONE ×3 (13:13→13:27)
[2021-05-31] MEDS ORDERED: Guaifenesin DM 100-10/5 ML UDCUP ONE (13:26)
[2021-05-31 13:35] LABS: #Basophils 0.1 thou/uL (0.0-0.2); #Eosinphils 0.6 thou/uL (0.0-0.7); #Lymphocytes 1.6 thou/uL (1.20-3.40); #Monocytes 0.3 thou/uL (0.11-0.59); #Neutrophils 4.2 thou/uL (1.40-6.50); %Eosinophils 8.5 % (0.0-10.0); %Lymphocytes 24.1 % (21.0-51.0); %Monocytes 3.9 % (0.0-10.0); %Neutrophils 61.6 % (42.0-75.0); Hemoglobin 15.3 g/dL (14.0-18.0); Mean Corpuscular HGB CONC 30.2 g/dL (32.0-36.0); Mean Platelet Volume 10.4 fL (7.4-10.4); Platelet Count 197 thou/uL (130-400); RBC Distribution Width 13.9 % (11.5-14.5); White Blood Cell (WBC) Count 6.8 thou/uL (4.8-10.8)
[2021-05-31 13:50] LABS: ALT (SGPT) 19 U/L (8-55); AST (SGOT) 20 U/L (5-34); Albumin 4.1 g/dL (3.4-4.8); Alkaline Phosphatase 85 U/L (40-110); Anion Gap 14 mmol/L (10-20); BUN (Urea Nitrogen) 11 mg/dL (8.4-25.7); Bilirubin, Total 0.5 mg/dL (0.2-1.2); Calc. Creatinine Clearance 0 mL/min (70-130); Calcium 9.2 mg/dL (7.8-10.44); Carbon Dioxide 23 mmol/L (23-31); Chloride 99 mmol/L (98-107); Globulin 3.3 g/dL (2.4-3.5); Glucose 194 mg/dL (80-115); Potassium 4.4 mmol/L (3.5-5.1); Protein, Total 7.4 g/dL (5.8-8.1); Sodium 132 mmol/L (136-145)
[2021-05-31] MEDS ORDERED: cefTRIAXone\\ROCEPHIN 1 GM VIAL ONE (16:01)
[2021-05-31] MEDS ORDERED: Sodium Chloride 0.9% 100 ML ONE (16:01)
[2021-06-01 21:10] LABS: SARS-CoV-2 PCR by NAA Not Detected (NotDetected)
== END 2021-05-31 16:46 | disposition home or self-care (01) ==
LOC: NAV ERS 12:11
DX: J44.1 Chronic obstructive pulmonary disease with (acute) exacerbation (principal); I25.10 Atherosclerotic heart disease of native coronary artery without angina pectoris; E11.9 Type 2 diabetes mellitus without complications; K21.9 Gastro-esophageal reflux disease without esophagitis; E78.00 Pure hypercholesterolemia, unspecified; M19.90 Unspecified osteoarthritis, unspecified site; I11.0 Hypertensive heart disease with heart failure; I50.9 Heart failure, unspecified; Z20.822 Contact with and (suspected) exposure to COVID-19; Z79.899 Other long term (current) drug therapy; Z79.82 Long term (current) use of aspirin; Z79.51 Long term (current) use of inhaled steroids
CPT/HCPCS: 71045; 71275; 80053; 83605; 83880; 84484; 85025; 85379; 87070; 87077; 87186; 87205; 93005; 96365; 96375; J0696; J2930; J3490; J7620; Q9967; U0003; U0005

== ENCOUNTER 2021-11-07 02:16 | Emergency (ER) | payer MEDICARE, BC ==
[2021-11-07] MEDS ORDERED: Ipratropium Bromide 2.5 ml Neb ONE (03:08)
[2021-11-07] MEDS ORDERED: Albuterol Sulfate 2.5 mg/0.5 ml Neb ONE ×3 (03:08→04:00)
[2021-11-07] MEDS ORDERED: methylPREDNISolone Sod Succ/PF 125 MG/2 ML VIAL ONE (03:08)
[2021-11-07 03:19] LABS: Anion Gap 14 mmol/L (10-20); BUN (Urea Nitrogen) 8 mg/dL (8.4-25.7); Calc. Creatinine Clearance 0 mL/min (70-130); Calcium 9.9 mg/dL (7.8-10.44); Carbon Dioxide 23 mmol/L (23-31); Chloride 98 mmol/L (98-107); Glucose 295 mg/dL (80-115); Potassium 3.9 mmol/L (3.5-5.1); Sodium 131 mmol/L (136-145)
[2021-11-07 03:21] LABS: #Basophils 0.2 thou/uL (0.0-0.2); #Lymphocytes 2.1 thou/uL (1.20-3.40); #Monocytes 0.6 thou/uL (0.11-0.59); #Neutrophils 4.6 thou/uL (1.40-6.50); %Basophils 2.4 % (0.0-1.0); %Eosinophils 12.1 % (0.0-10.0); %Lymphocytes 24.6 % (21.0-51.0); %Monocytes 7.3 % (0.0-10.0); %Neutrophils 53.6 % (42.0-75.0); Hemoglobin 16.1 g/dL (14.0-18.0); Mean Corpuscular HGB CONC 31.1 g/dL (32.0-36.0); Mean Corpuscular Volume 83.5 fL (78.0-98.0); Mean Platelet Volume 10.3 fL (7.4-10.4); Platelet Count 206 thou/uL (130-400); RBC Distribution Width 13.9 % (11.5-14.5); White Blood Cell (WBC) Count 8.5 thou/uL (4.8-10.8)
[2021-11-07 03:50] LABS: SARS-CoV-2 NAA Rapid Test Not Detected (NotDetected)
== END 2021-11-07 05:30 | disposition short-term general hospital (02) ==
LOC: NAV ERS 02:16
DX: J44.1 Chronic obstructive pulmonary disease with (acute) exacerbation (principal); I25.10 Atherosclerotic heart disease of native coronary artery without angina pectoris; E11.9 Type 2 diabetes mellitus without complications; E78.00 Pure hypercholesterolemia, unspecified; K21.9 Gastro-esophageal reflux disease without esophagitis; M19.90 Unspecified osteoarthritis, unspecified site; I11.0 Hypertensive heart disease with heart failure; I50.9 Heart failure, unspecified; Z79.82 Long term (current) use of aspirin; Z20.822 Contact with and (suspected) exposure to COVID-19; Z79.899 Other long term (current) drug therapy
CPT/HCPCS: 0240U; 71046; 80048; 85025; 93005; 94640; 94760; 96374; J2930; J7611

== ENCOUNTER 2022-01-08 14:13 | Emergency (ER) | payer MEDICARE, BC ==
[2022-01-08] MEDS ORDERED: methylPREDNISolone Sod Succ/PF 125 MG/2 ML VIAL ONE (14:49)
[2022-01-08 15:00] LABS: #Basophils 0.2 thou/uL (0.0-0.2); #Lymphocytes 1.9 thou/uL (1.20-3.40); #Monocytes 0.5 thou/uL (0.11-0.59); #Neutrophils 3.7 thou/uL (1.40-6.50); %Basophils 2.1 % (0.0-1.0); %Eosinophils 13.8 % (0.0-10.0); %Lymphocytes 26.5 % (21.0-51.0); %Monocytes 6.3 % (0.0-10.0); %Neutrophils 51.3 % (42.0-75.0); Hemoglobin 13.1 g/dL (14.0-18.0); Mean Corpuscular Hemoglobin 25.9 pg (27.0-31.0); Mean Corpuscular Volume 83.4 fL (78.0-98.0); Mean Platelet Volume 9.4 fL (7.4-10.4); Platelet Count 184 thou/uL (130-400); RBC Distribution Width 14.1 % (11.5-14.5); Red Blood Cell (RBC) Count 5.06 mill/uL (4.70-6.10); White Blood Cell (WBC) Count 7.2 thou/uL (4.8-10.8)
[2022-01-08 15:15] LABS: ALT (SGPT) 16 U/L (8-55); AST (SGOT) 19 U/L (5-34); Alkaline Phosphatase 94 U/L (40-110); Anion Gap 11 mmol/L (10-20); BUN (Urea Nitrogen) 10 mg/dL (8.4-25.7); Bilirubin, Total 0.5 mg/dL (0.2-1.2); Calc. Creatinine Clearance 0 mL/min (70-130); Calcium 8.7 mg/dL (7.8-10.44); Carbon Dioxide 26 mmol/L (23-31); Chloride 102 mmol/L (98-107); Globulin 3.6 g/dL (2.4-3.5); Glucose 281 mg/dL (80-115); Potassium 3.6 mmol/L (3.5-5.1); Protein, Total 7.6 g/dL (5.8-8.1); Sodium 135 mmol/L (136-145)
== END 2022-01-08 17:07 | disposition home or self-care (01) ==
LOC: NAV ERS 14:13
DX: J44.1 Chronic obstructive pulmonary disease with (acute) exacerbation (principal); I25.10 Atherosclerotic heart disease of native coronary artery without angina pectoris; E11.9 Type 2 diabetes mellitus without complications; I11.0 Hypertensive heart disease with heart failure; I50.9 Heart failure, unspecified; K21.9 Gastro-esophageal reflux disease without esophagitis; E78.00 Pure hypercholesterolemia, unspecified; M19.90 Unspecified osteoarthritis, unspecified site; Z79.82 Long term (current) use of aspirin; Z79.899 Other long term (current) drug therapy
CPT/HCPCS: 71045; 80053; 83880; 84484; 85025; 93005; 96374; J2930; J7620

== ENCOUNTER 2022-03-09 11:53 | Outpatient (CLI) | payer BC, OTHER | END 2022-03-09 11:54 | disposition home or self-care (01) | LOC: NAV RAD 11:53 | PROVIDERS: ATTEND Family Medicine | DX: J40 Bronchitis, not specified as acute or chronic (principal); R05.9 Cough, unspecified | CPT/HCPCS: 71046 ==

== ENCOUNTER 2022-04-18 20:04 | Emergency (ER) | payer BC, MEDICARE, OTHER ==
[2022-04-18] MEDS ORDERED: methylPREDNISolone Sod Succ/PF 125 MG/2 ML VIAL ONE (20:14)
[2022-04-18 20:51] LABS: ALT (SGPT) 14 U/L (8-55); AST (SGOT) 11 U/L (5-34); Albumin 4.5 g/dL (3.4-4.8); Alkaline Phosphatase 108 U/L (40-110); Anion Gap 18 mmol/L (10-20); BUN (Urea Nitrogen) 11 mg/dL (8.4-25.7); Bilirubin, Total 0.3 mg/dL (0.2-1.2); Calc. Creatinine Clearance 0 mL/min (70-130); Calcium 9.9 mg/dL (7.8-10.44); Carbon Dioxide 24 mmol/L (23-31); Chloride 100 mmol/L (98-107); Globulin 3.2 g/dL (2.4-3.5); Glucose 293 mg/dL (80-115); Potassium 3.9 mmol/L (3.5-5.1); Protein, Total 7.7 g/dL (5.8-8.1); Sodium 138 mmol/L (136-145)
[2022-04-18 21:00] LABS: #Basophils 0.2 thou/uL (0.0-0.2); #Eosinphils 0.7 thou/uL (0.0-0.7); #Lymphocytes 2.7 thou/uL (1.20-3.40); #Monocytes 0.6 thou/uL (0.11-0.59); #Neutrophils 4.5 thou/uL (1.40-6.50); %Basophils 1.9 % (0.0-1.0); %Eosinophils 8.1 % (0.0-10.0); %Lymphocytes 31.1 % (21.0-51.0); %Monocytes 6.3 % (0.0-10.0); %Neutrophils 52.6 % (42.0-75.0); Hemoglobin 14.8 g/dL (14.0-18.0); Mean Corpuscular HGB CONC 29.6 g/dL (32.0-36.0); Mean Corpuscular Hemoglobin 24.3 pg (27.0-31.0); Mean Platelet Volume 10.5 fL (7.4-10.4); Platelet Count 207 thou/uL (130-400); Platelet Morphology Comment Appears Adequate; RBC Morphology Normal; Red Blood Cell (RBC) Count 6.08 mill/uL (4.70-6.10); White Blood Cell (WBC) Count 8.6 thou/uL (4.8-10.8)
[2022-04-18] MEDS ORDERED: Sodium Chloride 0.9% 250 ML 250 ML ONE (21:50)
[2022-04-18] MEDS ORDERED: Azithromycin 500 MG VIAL ONE (21:50)
[2022-04-18 23:00] LABS: SARS-CoV-2 NAA Rapid Test Not Detected (NotDetected)
== END 2022-04-19 01:23 | disposition short-term general hospital (02) ==
LOC: NAV ERS 20:04
DX: J44.1 Chronic obstructive pulmonary disease with (acute) exacerbation (principal); R09.02 Hypoxemia; Z20.822 Contact with and (suspected) exposure to COVID-19; E11.9 Type 2 diabetes mellitus without complications; K21.9 Gastro-esophageal reflux disease without esophagitis; I25.10 Atherosclerotic heart disease of native coronary artery without angina pectoris; Z79.82 Long term (current) use of aspirin; Z79.899 Other long term (current) drug therapy
CPT/HCPCS: 71045; 80053; 84484; 85025; 93005; 94760; 96365; 96375; J0456; J2930; J7050; J7620; U0002

== ENCOUNTER 2022-08-15 21:29 | Inpatient (IN) | payer BC, MEDICARE, OTHER ==
[2022-08-15] MEDS ORDERED: Acetaminophen 500 MG TAB ONE (22:05)
[2022-08-15] MEDS ORDERED: Sodium Chloride 0.9% 1,000 ML ONE (22:11)
[2022-08-15 22:14] LABS: #Basophils 0.1 thou/uL (0.0-0.2); #Eosinphils 0.1 thou/uL (0.0-0.7); #Lymphocytes 1.6 thou/uL (1.20-3.40); #Monocytes 0.8 thou/uL (0.11-0.59); #Neutrophils 10.6 thou/uL (1.40-6.50); %Basophils 0.7 % (0.0-1.0); %Eosinophils 1.1 % (0.0-10.0); %Lymphocytes 12.2 % (21.0-51.0); %Monocytes 5.9 % (0.0-10.0); Hemoglobin 13.4 g/dL (14.0-18.0); Mean Corpuscular HGB CONC 32.2 g/dL (32.0-36.0); Mean Corpuscular Hemoglobin 26.5 pg (27.0-31.0); Mean Corpuscular Volume 82.5 fL (78.0-98.0); Mean Platelet Volume 8.8 fL (7.4-10.4); Platelet Count 267 thou/uL (130-400); RBC Distribution Width 13.9 % (11.5-14.5); Red Blood Cell (RBC) Count 5.05 mill/uL (4.70-6.10); White Blood Cell (WBC) Count 13.2 thou/uL (4.8-10.8)
[2022-08-15 22:21] LABS: ALT (SGPT) 61 U/L (8-55); AST (SGOT) 55 U/L (5-34); Albumin 3.7 g/dL (3.4-4.8); Alkaline Phosphatase 202 U/L (40-110); Anion Gap 15 mmol/L (10-20); BUN (Urea Nitrogen) 11 mg/dL (8.4-25.7); Bilirubin, Total 0.4 mg/dL (0.2-1.2); CK (CPK) 50 U/L (30-200); Calc. Creatinine Clearance 0 mL/min (70-130); Calcium 9.1 mg/dL (7.8-10.44); Carbon Dioxide 25 mmol/L (23-31); Chloride 95 mmol/L (98-107); Estimated GFR 87; Globulin 3.7 g/dL (2.4-3.5); Glucose 395 mg/dL (80-115); Potassium 4.1 mmol/L (3.5-5.1); Protein, Total 7.4 g/dL (5.8-8.1); Sodium 131 mmol/L (136-145)
[2022-08-15 22:38] LABS: SARS-CoV-2 NAA Rapid Test Not Detected (NotDetected)
[2022-08-15] MEDS ORDERED: cefTRIAXone\\ROCEPHIN 2 GM VIAL ONE (22:55)
[2022-08-15] MEDS ORDERED: Sodium Chloride 0.9% 100 ML ONE (22:55)
[2022-08-15] MEDS ORDERED: HYDROcodone/Acetaminophen 5/325 mg Tablet ONE (23:17)
[2022-08-15] MEDS ORDERED: Azithromycin 500 MG VIAL ONE (23:42)
[2022-08-15] MEDS ORDERED: Sodium Chloride 0.9% 250 ML 250 ML ONE (23:42)
[2022-08-16] MEDS ORDERED: Ondansetron ODT 4 MG TAB SL PRN (01:00)
[2022-08-16] MEDS ORDERED: Acetaminophen 325 MG TAB PO PRN (01:00)
[2022-08-16] MEDS ORDERED: Ondansetron PF 4 MG/2 ML Vial IVP PRN (01:00)
[2022-08-16 01:05] LABS: Bilirubin Negative (Negative); Blood, Urine Trace (Negative); Clarity Clear (Clear); Glucose, Urine (Dipstick) >=1000 mg/dL (Negative); Ketone, Urine Negative (Negative); Leukocyte Negative (Negative); Nitrite Negative (Negative); Protein, Urine (Dipstick) Trace mg/dL (Neg-Trace); Urobilinogen 0.2 mg/dL (Less than 2)
[2022-08-16 01:08] LABS: Bacteria/HPF None Seen HPF (None Seen); RBC/HPF None Seen HPF (0-3); Squamous Epithelial None Seen HPF (0-3); WBC/HPF None Seen HPF (0-3)
[2022-08-16] MEDS: Vancomycin HCl 1 GM in Sodium Chloride 0.9% 250 ML 250 ML IVPB SCH (01:50)
[2022-08-16] MEDS: Sodium Chloride 0.9% 1,000 ML IV SCH ×2 (05:37→13:21)
[2022-08-16 06:38] LABS: #Basophils 0.1 thou/uL (0.0-0.2); #Eosinphils 0.2 thou/uL (0.0-0.7); #Lymphocytes 2.7 thou/uL (1.20-3.40); #Monocytes 1.2 thou/uL (0.11-0.59); #Neutrophils 13.5 thou/uL (1.40-6.50); %Basophils 0.7 % (0.0-1.0); %Eosinophils 1.1 % (0.0-10.0); %Lymphocytes 15.4 % (21.0-51.0); %Monocytes 6.7 % (0.0-10.0); %Neutrophils 76.1 % (42.0-75.0); Hemoglobin 13.9 g/dL (14.0-18.0); Mean Corpuscular HGB CONC 31.1 g/dL (32.0-36.0); Mean Corpuscular Hemoglobin 26.3 pg (27.0-31.0); Mean Corpuscular Volume 84.5 fL (78.0-98.0); Mean Platelet Volume 8.8 fL (7.4-10.4); Platelet Count 340 thou/uL (130-400); RBC Distribution Width 14.3 % (11.5-14.5); White Blood Cell (WBC) Count 17.7 thou/uL (4.8-10.8)
[2022-08-16 06:56] LABS: ALT (SGPT) 53 U/L (8-55); AST (SGOT) 31 U/L (5-34); Albumin 3.7 g/dL (3.4-4.8); Alkaline Phosphatase 188 U/L (40-110); Anion Gap 18 mmol/L (10-20); BUN (Urea Nitrogen) 8 mg/dL (8.4-25.7); Bilirubin, Total 0.4 mg/dL (0.2-1.2); Calc. Creatinine Clearance 95 mL/min (70-130); Calcium 9.1 mg/dL (7.8-10.44); Carbon Dioxide 25 mmol/L (23-31); Chloride 99 mmol/L (98-107); Estimated GFR 98; Globulin 3.9 g/dL (2.4-3.5); Glucose 248 mg/dL (80-115); Potassium 4.4 mmol/L (3.5-5.1); Protein, Total 7.6 g/dL (5.8-8.1); Sodium 138 mmol/L (136-145)
[2022-08-16] MEDS ORDERED: Dextrose 50% Abboject 50 ML SYRINGE SLOW IVP PRN (06:59)
[2022-08-16] MEDS ORDERED: HumaLOG 300 UNITS/3 ML VIAL SC PRN (07:00)
[2022-08-16] MEDS ORDERED: Dextrose 5% in Water 1,000 ML IV PRN (07:00)
[2022-08-16] MEDS ORDERED: cefTRIAXone\\ROCEPHIN 2 GM in Sodium Chloride 0.9% 100 ML IVPB SCH (09:00)
[2022-08-16] MEDS ORDERED: Iopamidol 370 76% 100 ML VIAL ONE (09:00)
[2022-08-16] MEDS ORDERED: Non-Formulary Item 1 EACH (Albuterol Sulfate [Proair Digihaler] 90 MCG Aer.Pw.Bas) PO PRN (09:05)
[2022-08-16] MEDS ORDERED: Albuterol Sulfate 2.5 mg/3 ml Neb NEB PRN (09:11)
[2022-08-16] MEDS: Vancomycin HCl 750 MG in Sodium Chloride 0.9% 250 ML 250 ML IVPB SCH (09:35)
[2022-08-16] MEDS: Acetaminophen 325 MG TAB PO PRN (09:59)
[2022-08-16] MEDS: Vancomycin HCl 500 MG in Sodium Chloride 0.9% 100 ML IVPB SCH (11:15)
[2022-08-16] MEDS: cefTRIAXone\\ROCEPHIN 2 GM in Sodium Chloride 0.9% 100 ML IVPB SCH (12:27)
[2022-08-16] MEDS: Enoxaparin Sodium 40 MG/0.4 ML SYRINGE SC SCH (12:27)
[2022-08-16] MEDS: HumaLOG 300 UNITS/3 ML VIAL SC PRN (12:36)
[2022-08-16] MEDS ORDERED: Non-Formulary Item 1 EACH (Gabapentin [Gabapentin] 800 MG Tablet) PO SCH (15:00)
[2022-08-16] MEDS ORDERED: Gabapentin 400 MG CAP PO SCH (15:00)
[2022-08-16] MEDS ORDERED: MIRTAZAPINE 45 MG PO SCH (21:00)
[2022-08-16] MEDS ORDERED: Mirtazapine 15 MG Soltab PO SCH (21:00)
[2022-08-16] MEDS ORDERED: Mirtazapine 15 MG TAB PO SCH (21:00)
[2022-08-16] MEDS ORDERED: Famotidine 20 MG TAB PO SCH (21:00)
[2022-08-16] MEDS ORDERED: Azithromycin 250 MG in Sodium Chloride 0.9% 250 ML 250 ML IVPB SCH (22:00)
[2022-08-17] MEDS ORDERED: predniSONE 20 MG TAB PO SCH (08:00)
[2022-08-17] MEDS ORDERED: Citalopram 20 MG TAB PO SCH (09:00)
[2022-08-17] MEDS ORDERED: Fluticasone/Umeclidin/Vilanter [Trelegy Ellipta 100-62.5-25] INH SCH (09:00)
[2022-08-17] MEDS ORDERED: Aspirin 81 mg Enteric Coated Tablet PO SCH (09:00)
[2022-08-17] MEDS ORDERED: Losartan 25 MG TAB PO SCH (09:00)
[2022-08-17] MEDS ORDERED: Non-Formulary Item 1 EACH (Fluticasone/Umeclidin/Vilanter [Trelegy Ellipta 100-62.5-25] 1 IH SCH (09:00)
[2022-08-17 12:19] VITALS: BP 146/84; TEMP 98.2; BMI 26.2
== END 2022-08-16 14:05 | disposition short-term general hospital (02) | DRG 177 ==
LOC: NAV ERS 21:29 → NAV ACUTE 08-16 00:27
PROVIDERS: ADMIT Family Medicine; ATTEND Family Medicine
DX: J85.0 Gangrene and necrosis of lung (principal); I26.99 Other pulmonary embolism without acute cor pulmonale; J18.9 Pneumonia, unspecified organism; I50.32 Chronic diastolic (congestive) heart failure; J44.9 Chronic obstructive pulmonary disease, unspecified; I11.0 Hypertensive heart disease with heart failure; E78.5 Hyperlipidemia, unspecified; K21.9 Gastro-esophageal reflux disease without esophagitis; Z77.22 Contact with and (suspected) exposure to environmental tobacco smoke (acute) (chronic); E11.9 Type 2 diabetes mellitus without complications; Z20.822 Contact with and (suspected) exposure to COVID-19; R91.8 Other nonspecific abnormal finding of lung field; K22.70 Barrett's esophagus without dysplasia; Z98.890 Other specified postprocedural states; Z95.0 Presence of cardiac pacemaker; Z90.89 Acquired absence of other organs; Z90.49 Acquired absence of other specified parts of digestive tract; Z80.1 Family history of malignant neoplasm of trachea, bronchus and lung
CPT/HCPCS: 36416; 71046; 71260; 80053; 81003; 81015; 82550; 83605; 84484; 85025; 87040; 87070; 87116; 87205; 87206; 87804; 93005; 94640; 94760; 96365; 96367; 36415-59; J0456; J0696; J1650; J1815; J3370; J3490; J7050; J7620; Q9967; U0002

== ENCOUNTER 2022-09-24 10:49 | Outpatient (CLI) | payer MEDICARE ==
[2022-09-24 12:14] LABS: ALT (SGPT) 20 U/L (8-55); AST (SGOT) 11 U/L (5-34); Albumin 4.6 g/dL (3.4-4.8); Alkaline Phosphatase 104 U/L (40-110); Anion Gap 15 mmol/L (10-20); BUN (Urea Nitrogen) 12 mg/dL (8.4-25.7); Bilirubin, Total 0.4 mg/dL (0.2-1.2); Calc. Creatinine Clearance 0 mL/min (70-130); Calcium 10.6 mg/dL (7.8-10.44); Carbon Dioxide 28 mmol/L (23-31); Chloride 100 mmol/L (98-107); Estimated GFR 67; Globulin 3.3 g/dL (2.4-3.5); Potassium 4.9 mmol/L (3.5-5.1); Protein, Total 7.9 g/dL (5.8-8.1); Sodium 138 mmol/L (136-145)
[2022-09-24 12:41] LABS: Glucose 419 mg/dL (80-115)
[2022-09-24 17:22] LABS: Hemoglobin A1c 12.4 % (4.0-6.0)
[2022-09-24 17:41] LABS: Creatinine, Urine 82.22 mg/dL (63-166); Microalbumin Urine 9.1 mg/dL (0.5-50.0); Microalbumin/Creat Ratio 110.7 mg/g (Less than 30)
== END 2022-09-24 10:50 | disposition home or self-care (01) ==
LOC: NAV RAD 10:49
PROVIDERS: ATTEND Internal Medicine Endocrinology, Diabetes & Metabolism
DX: J44.9 Chronic obstructive pulmonary disease, unspecified (principal); E11.65 Type 2 diabetes mellitus with hyperglycemia; I10 Essential (primary) hypertension; E78.5 Hyperlipidemia, unspecified
CPT/HCPCS: 36415; 71046; 80053; 82043; 83036